=== PATIENT | male | born 1955 | race Two or more races ===

== ENCOUNTER 2017-07-29 18:49 | Inpatient (IN) | payer MEDICARE, MEDICAID ==
[~2017-07-29] VITALS: Ht 182.9 cm; Wt 89.9 kg
[2017-07-29] MEDS ORDERED: BUSP10TA3 PO (19:11)
[2017-07-29] MEDS ORDERED: METO25TA6 PO (19:11)
[2017-07-29] MEDS ORDERED: SIMV40TA5 PO (19:11)
[2017-07-29] MEDS ORDERED: HYDR-4061 PO (19:11)
[2017-07-29] MEDS ORDERED: OMEP20CA10 PO (19:11)
[2017-07-29] MEDS ORDERED: ATOR-2 PO (19:11)
[2017-07-29] MEDS ORDERED: CHOL50004 PO (19:11)
[2017-07-29] MEDS ORDERED: CALC600T12 PO (19:11)
[2017-07-29] MEDS ORDERED: TEMA15CA PO (19:12)
[2017-07-29] MEDS ORDERED: AMOX500T2 PO (19:12)
[2017-07-29] MEDS ORDERED: SODIUM CHLORIDE 0.9% 1,000 ML IV ONE (19:15)
[2017-07-29 19:32] LABS: BASOPHILS % (AUTO) 0.4 % (0.0-2.0); EOSINOPHILS % (AUTO) 1.4 % (1.0-6.0); HEMATOCRIT 39.2 % (41-53); HEMOGLOBIN 13.4 g/dL (13.5-17.5); LYMPHOCYTES # (AUTO) 3.1 K/uL (1.0-4.8); LYMPHOCYTES % (AUTO) 41.8 % (22.0-44.0); MEAN CORPUSCULAR HEMOGLOBIN 29.2 pg (26.0-34.0); MEAN CORPUSCULAR HGB CONC 34.2 G/dL (31.0-37.0); MEAN CORPUSCULAR VOLUME 85 fL (80-100); MONOCYTES # (AUTO) 0.5 K/uL (0.1-1.0); MONOCYTES % (AUTO) 6.2 % (2.0-9.0); NEUTROPHILS # (AUTO) 3.7 K/uL (1.8-7.7); NEUTROPHILS % (AUTO) 50.2 % (40.0-70.0); PLATELET COUNT (AUTO) 161 K/uL (150-450); RED BLOOD CELL COUNT(AUTO) 4.58 MIL/uL (4.50-5.90); RED CELL DISTRIBUTION WIDTH 14.5 % (11.5-14.5)
[2017-07-29 19:55] LABS: ANION GAP 11 mmol/L (8-16); CALCIUM, TOTAL 8.8 mg/dL (8.8-10.5); CARBON DIOXIDE 25 mmol/L (22-29); CHLORIDE 108 mmol/L (98-107); CREATININE 0.91 mg/dL (0.60-1.30); GLOMERULAR FILTR. RATE CALC > 60 mL/min (>60); GLUCOSE,RANDOM 93 mg/dL (70-110); POTASSIUM 3.7 mmol/L (3.5-5.1); SODIUM SERUM 144 mmol/L (136-145); UREA NITROGEN, BLOOD 12 mg/dL (7-18)
[2017-07-29 20:00] LABS: ALANINE AMINOTRANSFERASE 29 U/L (12-78); ALBUMIN 3.5 g/dL (3.4-5.0); ALKALINE PHOSPHATASE 68 U/L (46-116); ASPARTATE AMINOTRANSFERASE 26 U/L (15-37); BILIRUBIN,TOTAL 0.3 mg/dL (0.1-1.0); TOTAL PROTEIN, SERUM 6.8 g/dL (6.4-8.2)
[2017-07-29 21:21] LABS: SALICYLATE < 2.8 mg/dL (2.8-20.0)
[2017-07-29 21:39] LABS: ACETAMINOPHEN < 2 mcg/mL (10-30)
[2017-07-29] MEDS ORDERED: ZOLPIDEM TARTRATE 10 MG TABLET PO PRN (22:15)
[2017-07-29] MEDS ORDERED: LORazepam 1 MG TABLET PO PRN (22:15)
[2017-07-30 00:50] LABS: CHOLESTEROL 164 mg/dL (131-200); FREE T4 (FREE THYROXINE) 1.33 ng/dL (0.76-1.46); HDL CHOLESTEROL 54 mg/dL (40-60); LDL CHOL (CALC.) 83 mg/dL (0-130); THYROID STIMULATING HORMONE 1.62 uIU/mL (0.36-3.74); TRIGLYCERIDES 133 mg/dL (15-150)
[2017-07-30 03:23] VITALS: BP 148/74
[2017-07-30] MEDS ORDERED: PNEUMOCOCCAL VACCINE POLYVALENT 0.5 ML VIAL [PPSV23] IM ONE (04:30)
[2017-07-30] MEDS ORDERED: INFLUENZA VIRUS VACCINE QVS 2017-18 (3YR+)/PF 60 MCG/0.5 ML SYRINGE IM ONE (04:30)
[2017-07-30 08:00] VITALS: BP 119/71
[2017-07-30] MEDS ORDERED: QUEtiapine FUMARATE 100 MG TABLET PO PRN (11:30)
[2017-07-30] MEDS ORDERED: HydrOXYzine PAMOATE 50 MG CAPSULE PO PRN (11:30)
[2017-07-30] MEDS ORDERED: MAGNESIUM HYDROXIDE SUSPENSION 30 ML UDCUP PO PRN (11:30)
[2017-07-30] MEDS ORDERED: GuaiFENesin/D-METHORPHAN [SUGAR-FREE] 200-20MG/10 ML SYRUP UDCUP PO PRN (11:30)
[2017-07-30] MEDS ORDERED: PROMETHAZINE HCL 25 MG TABLET PO PRN (11:30)
[2017-07-30] MEDS ORDERED: MAG HYDROX/AL HYDROX/SIMETH ES 30 ML SUSPENSION UDCUP PO PRN (11:30)
[2017-07-30] MEDS ORDERED: TUBERCULIN, PURIFIED PROTEIN DERIVATIVE 5 TU/0.1 ML SYG ID ONE (11:30)
[2017-07-30] MEDS ORDERED: ACETAMINOPHEN 325 MG TABLET PO PRN (11:30)
[2017-07-30] MEDS ORDERED: LOPERAMIDE HCL 2 MG CAPSULE PO PRN (11:30)
[2017-07-30] MEDS ORDERED: DULO20CA30 PO (15:45)
[2017-07-30] MEDS: THIAMINE HCL 100 MG TABLET PO SCH (16:21)
[2017-07-30 16:56] VITALS: BP 134/87
[2017-07-31 05:53] VITALS: BP 138/77
[2017-07-31] MEDS: THIAMINE HCL 100 MG TABLET PO SCH (08:47)
[2017-07-31] MEDS ORDERED: DULO20CA30 PO (08:58)
[2017-07-31] MEDS ORDERED: DULoxetine HCL 20 MG CAPSULE PO SCH (09:00)
[2017-07-31] MEDS ORDERED: OMEPRAZOLE 20 MG CAPSULE PO SCH (09:00)
[2017-07-31] MEDS ORDERED: FOLIC ACID 1 MG TABLET PO SCH (09:00)
[2017-07-31] MEDS ORDERED: CHOLECALCIFEROL (VIT D3) 2,000 UNITS TABLET PO SCH (09:00)
[2017-07-31] MEDS ORDERED: MULTIVITAMINS WITH MINERALS, THERAPEUTIC TABLET PO SCH (09:00)
[2017-07-31 09:55] VITALS: BP 131/69
== END 2017-07-31 15:30 | disposition home or self-care (01) | DRG 885 ==
LOC: EMS 18:51 → 3EX 07-30 02:34
PROVIDERS: ADMIT Psychiatry & Neurology Psychiatry; ATTEND Psychiatry & Neurology Psychiatry
PROC: 3E0234Z Introduction of Serum, Toxoid and Vaccine into Muscle, Percutaneous Approach (ICD-10-PCS; principal; 2017-07-30)
DX: F33.9 Major depressive disorder, recurrent, unspecified (principal); Z91.14 Patient's other noncompliance with medication regimen; D64.9 Anemia, unspecified; T50.901A Poisoning by unspecified drugs, medicaments and biological substances, accidental (unintentional), initial encounter; E55.9 Vitamin D deficiency, unspecified; E78.5 Hyperlipidemia, unspecified; I10 Essential (primary) hypertension; K21.9 Gastro-esophageal reflux disease without esophagitis; F17.210 Nicotine dependence, cigarettes, uncomplicated; F41.9 Anxiety disorder, unspecified; G89.29 Other chronic pain; Y92.89 Other specified places as the place of occurrence of the external cause; Z82.49 Family history of ischemic heart disease and other diseases of the circulatory system; I25.2 Old myocardial infarction; Z85.46 Personal history of malignant neoplasm of prostate; Z23 Encounter for immunization
CPT/HCPCS: 84439; 84443; 93005; G0480; G0481; J7030

== ENCOUNTER 2017-08-26 11:58 | Inpatient (IN) | payer MEDICARE, MEDICAID ==
[~2017-08-26] VITALS: Ht 182.9 cm; Wt 89.4 kg
[~2017-08-26 11:58] MED LIST: DULO20CA30 PO; OMEP20CA10 PO
[2017-08-26] MEDS ORDERED: ZOLP10TA7 PO (12:28)
[2017-08-26] MEDS ORDERED: STATIN PO (12:28)
[2017-08-26] MEDS ORDERED: ASPI-556 PO (12:28)
[2017-08-26] MEDS ORDERED: CHEMO (12:31)
[2017-08-26 12:54] LABS: BASOPHILS % (AUTO) 0.6 % (0.0-2.0); EOSINOPHILS % (AUTO) 1.3 % (1.0-6.0); HEMATOCRIT 41.6 % (41-53); HEMOGLOBIN 14.2 g/dL (13.5-17.5); LYMPHOCYTES # (AUTO) 1.7 K/uL (1.0-4.8); LYMPHOCYTES % (AUTO) 17.8 % (22.0-44.0); MEAN CORPUSCULAR HEMOGLOBIN 29.4 pg (26.0-34.0); MEAN CORPUSCULAR HGB CONC 34.1 G/dL (31.0-37.0); MEAN CORPUSCULAR VOLUME 86 fL (80-100); MONOCYTES # (AUTO) 0.5 K/uL (0.1-1.0); MONOCYTES % (AUTO) 5.1 % (2.0-9.0); NEUTROPHILS % (AUTO) 75.2 % (40.0-70.0); PLATELET COUNT (AUTO) 156 K/uL (150-450); RED BLOOD CELL COUNT(AUTO) 4.83 MIL/uL (4.50-5.90); RED CELL DISTRIBUTION WIDTH 14.6 % (11.5-14.5)
[2017-08-26] MEDS ORDERED: HYDROCODONE/ACETAMINOPHEN 5-325 MG TABLET PO ONE (13:00)
[2017-08-26] MEDS ORDERED: PERTUSS(ACELL),DIPH,TET VAC/PF 0.5 ML VIAL IM ONE (13:00)
[2017-08-26 13:05] LABS: ANION GAP 7 mmol/L (8-16); CALCIUM, TOTAL 8.9 mg/dL (8.8-10.5); CARBON DIOXIDE 27 mmol/L (22-29); CHLORIDE 105 mmol/L (98-107); CREATININE 0.82 mg/dL (0.60-1.30); GLOMERULAR FILTR. RATE CALC > 60 mL/min (>60); GLUCOSE,RANDOM 100 mg/dL (70-110); SODIUM SERUM 139 mmol/L (136-145); UREA NITROGEN, BLOOD 13 mg/dL (7-18)
[2017-08-26 13:11] LABS: ALANINE AMINOTRANSFERASE 21 U/L (12-78); ALBUMIN 3.6 g/dL (3.4-5.0); ALKALINE PHOSPHATASE 82 U/L (46-116); ASPARTATE AMINOTRANSFERASE 15 U/L (15-37); BILIRUBIN,TOTAL 0.4 mg/dL (0.1-1.0); TOTAL PROTEIN, SERUM 6.8 g/dL (6.4-8.2)
[2017-08-26] MEDS ORDERED: ZOLPIDEM TARTRATE 10 MG TABLET PO PRN (13:15)
[2017-08-26] MEDS ORDERED: QUEtiapine FUMARATE 100 MG TABLET PO PRN (13:15)
[2017-08-26] MEDS ORDERED: LORazepam 2 MG TABLET PO PRN (13:15)
[2017-08-26] MEDS ORDERED: SIMV-261 PO (13:18)
[2017-08-26] MEDS ORDERED: HYDROCODONE/ACETAMINOPHEN 10-325 MG TABLET PO ONE (15:15)
[2017-08-26] MEDS ORDERED: GuaiFENesin/D-METHORPHAN [SUGAR-FREE] 200-20MG/10 ML SYRUP UDCUP PO PRN (15:30)
[2017-08-26] MEDS ORDERED: ACETAMINOPHEN 325 MG TABLET PO PRN (15:30)
[2017-08-26] MEDS ORDERED: LOPERAMIDE HCL 2 MG CAPSULE PO PRN (15:30)
[2017-08-26] MEDS ORDERED: MAGNESIUM HYDROXIDE SUSPENSION 30 ML UDCUP PO PRN (15:30)
[2017-08-26] MEDS ORDERED: HydrOXYzine PAMOATE 50 MG CAPSULE PO PRN (15:30)
[2017-08-26] MEDS ORDERED: MAG HYDROX/AL HYDROX/SIMETH ES 30 ML SUSPENSION UDCUP PO PRN (15:30)
[2017-08-26] MEDS ORDERED: PROMETHAZINE HCL 25 MG TABLET PO PRN (15:30)
[2017-08-26] MEDS: THIAMINE HCL 100 MG TABLET PO SCH (16:51)
[2017-08-26 20:13] LABS: APPEARANCE,URINE CLEAR (CLEAR); BILIRUBIN,URINE NEGATIVE (NEGATIVE); GLUCOSE, URINE (UA) NEGATIVE (NEGATIVE); KETONES,URINE TRACE mg/dL (NEGATIVE); LEUKOCYTE ESTERASE ,URINE NEGATIVE (NEGATIVE); NITRATE,URINE NEGATIVE (NEGATIVE); OCCULT BLOOD,URINE NEGATIVE (NEGATIVE); PROTEIN,URINE NEGATIVE (NEGATIVE)
[2017-08-26 20:16] LABS: AMPHET/METH SCREEN,URINE NEGATIVE (NEGATIVE); BARBITURATE SCREEN, URINE NEGATIVE (NEGATIVE); BENZODIAZEPINES SCREEN,URINE NEGATIVE (NEGATIVE); CANNABINOID SCREEN,URINE NEGATIVE (NEGATIVE); COCAINE SCREEN,URINE NEGATIVE (NEGATIVE); METHADONE SCREEN, URINE NEGATIVE (NEGATIVE); OPIATE SCREEN,URINE POSITIVE (NEGATIVE)
[2017-08-26 20:17] LABS: PHENCYCLIDINE SCREEN,URINE NEGATIVE (NEGATIVE)
[2017-08-26] MEDS ORDERED: INFLUENZA VIRUS VACCINE QVS 2017-18 (3YR+)/PF 60 MCG/0.5 ML SYRINGE IM ONE (21:15)
[2017-08-26] MEDS: ZOLPIDEM TARTRATE 10 MG TABLET PO PRN (21:20)
[2017-08-26 21:26] VITALS: BP 147/80
[2017-08-27 06:39] LABS: BASOPHILS % (AUTO) 0.4 % (0.0-2.0); EOSINOPHILS % (AUTO) 2.8 % (1.0-6.0); HEMOGLOBIN 14.4 g/dL (13.5-17.5); LYMPHOCYTES # (AUTO) 1.9 K/uL (1.0-4.8); LYMPHOCYTES % (AUTO) 27.7 % (22.0-44.0); MEAN CORPUSCULAR HEMOGLOBIN 29.5 pg (26.0-34.0); MEAN CORPUSCULAR HGB CONC 34.2 G/dL (31.0-37.0); MEAN CORPUSCULAR VOLUME 87 fL (80-100); MONOCYTES # (AUTO) 0.5 K/uL (0.1-1.0); MONOCYTES % (AUTO) 6.9 % (2.0-9.0); NEUTROPHILS # (AUTO) 4.3 K/uL (1.8-7.7); NEUTROPHILS % (AUTO) 62.2 % (40.0-70.0); PLATELET COUNT (AUTO) 151 K/uL (150-450); RED BLOOD CELL COUNT(AUTO) 4.86 MIL/uL (4.50-5.90); RED CELL DISTRIBUTION WIDTH 14.8 % (11.5-14.5)
[2017-08-27 07:02] LABS: ALANINE AMINOTRANSFERASE 21 U/L (12-78); ALBUMIN 3.3 g/dL (3.4-5.0); ALKALINE PHOSPHATASE 75 U/L (46-116); ANION GAP 10 mmol/L (8-16); ASPARTATE AMINOTRANSFERASE 14 U/L (15-37); BILIRUBIN,TOTAL 0.4 mg/dL (0.1-1.0); CALCIUM, TOTAL 8.8 mg/dL (8.8-10.5); CARBON DIOXIDE 26 mmol/L (22-29); CHLORIDE 105 mmol/L (98-107); CHOL/HDL RATIO 4.4 (4.2-7.3); CHOLESTEROL 201 mg/dL (131-200); CREATININE 0.77 mg/dL (0.60-1.30); GLOMERULAR FILTR. RATE CALC > 60 mL/min (>60); GLUCOSE,RANDOM 101 mg/dL (70-110); HDL CHOLESTEROL 46 mg/dL (40-60); LDL CHOL (CALC.) 131 mg/dL (0-130); POTASSIUM 4.1 mmol/L (3.5-5.1); SODIUM SERUM 141 mmol/L (136-145); TOTAL PROTEIN, SERUM 6.4 g/dL (6.4-8.2); TRIGLYCERIDES 118 mg/dL (15-150); UREA NITROGEN, BLOOD 11 mg/dL (7-18)
[2017-08-27 08:05] VITALS: BP 122/78
[2017-08-27] MEDS: DULoxetine HCL 20 MG CAPSULE PO SCH (08:56)
[2017-08-27] MEDS: THIAMINE HCL 100 MG TABLET PO SCH ×2 (08:56→16:25)
[2017-08-27] MEDS: OMEPRAZOLE 20 MG CAPSULE PO SCH (08:56)
[2017-08-27] MEDS: MULTIVITAMINS WITH MINERALS, THERAPEUTIC TABLET PO SCH (08:56)
[2017-08-27] MEDS: ASPIRIN 81 MG CHEWABLE TABLET PO SCH (08:56)
[2017-08-27] MEDS: FOLIC ACID 1 MG TABLET PO SCH (08:56)
[2017-08-27] MEDS: NICOTINE 21 MG/24 HOUR PATCH TD SCH (09:00)
[2017-08-27 16:35] VITALS: BP 123/74
[2017-08-28] MEDS: NICOTINE 21 MG/24 HOUR PATCH TD SCH (09:00)
[2017-08-28] MEDS: ASPIRIN 81 MG CHEWABLE TABLET PO SCH (09:17)
[2017-08-28] MEDS: OMEPRAZOLE 20 MG CAPSULE PO SCH (09:18)
[2017-08-28] MEDS: FOLIC ACID 1 MG TABLET PO SCH (09:18)
[2017-08-28] MEDS: THIAMINE HCL 100 MG TABLET PO SCH ×2 (09:18→16:21)
[2017-08-28] MEDS: DULoxetine HCL 20 MG CAPSULE PO SCH (09:18)
[2017-08-28] MEDS: MULTIVITAMINS WITH MINERALS, THERAPEUTIC TABLET PO SCH (09:18)
[2017-08-28 10:43] VITALS: BP 134/84
[2017-08-28 16:46] VITALS: BP 126/79
[2017-08-29] MEDS ORDERED: DULoxetine HCL 20 MG CAPSULE PO SCH (09:00)
[2017-08-29] MEDS: OMEPRAZOLE 20 MG CAPSULE PO SCH (09:22)
[2017-08-29] MEDS: ASPIRIN 81 MG CHEWABLE TABLET PO SCH (09:22)
[2017-08-29] MEDS: MULTIVITAMINS WITH MINERALS, THERAPEUTIC TABLET PO SCH (09:22)
[2017-08-29] MEDS: FOLIC ACID 1 MG TABLET PO SCH (09:22)
[2017-08-29] MEDS: NICOTINE 21 MG/24 HOUR PATCH TD SCH (09:23)
[2017-08-29] MEDS: THIAMINE HCL 100 MG TABLET PO SCH ×2 (09:24→17:07)
[2017-08-29 09:50] VITALS: BP 141/76
[2017-08-29 17:00] VITALS: BP 124/72
[2017-08-29] MEDS: ZOLPIDEM TARTRATE 10 MG TABLET PO PRN (21:12)
[2017-08-30 06:48] VITALS: BP 135/74
[2017-08-30] MEDS ORDERED: DULoxetine HCL 60 MG CAPSULE PO SCH (09:00)
[2017-08-30] MEDS: NICOTINE 21 MG/24 HOUR PATCH TD SCH (09:00)
[2017-08-30] MEDS: FOLIC ACID 1 MG TABLET PO SCH (09:09)
[2017-08-30] MEDS: OMEPRAZOLE 20 MG CAPSULE PO SCH (09:09)
[2017-08-30] MEDS: MULTIVITAMINS WITH MINERALS, THERAPEUTIC TABLET PO SCH (09:10)
[2017-08-30] MEDS: ASPIRIN 81 MG CHEWABLE TABLET PO SCH (09:10)
[2017-08-30] MEDS: THIAMINE HCL 100 MG TABLET PO SCH ×2 (09:10→16:15)
[2017-08-30 09:40] VITALS: BP 131/68
[2017-08-30 18:21] VITALS: BP 125/70
[2017-08-31] MEDS ORDERED: DULO30CA2 PO (06:16)
[2017-08-31] MEDS: ASPIRIN 81 MG CHEWABLE TABLET PO SCH (08:06)
[2017-08-31] MEDS: MULTIVITAMINS WITH MINERALS, THERAPEUTIC TABLET PO SCH (08:07)
[2017-08-31] MEDS: THIAMINE HCL 100 MG TABLET PO SCH (08:07)
[2017-08-31] MEDS: OMEPRAZOLE 20 MG CAPSULE PO SCH (08:07)
[2017-08-31] MEDS: FOLIC ACID 1 MG TABLET PO SCH (08:07)
[2017-08-31 08:45] VITALS: BP 124/70
[2017-08-31] MEDS ORDERED: DULoxetine HCL 30 MG CAPSULE PO SCH (09:00)
== END 2017-08-31 09:15 | disposition home or self-care (01) | DRG 885 ==
LOC: EMS 11:59 → 3EX 14:40
PROVIDERS: ADMIT Psychiatry & Neurology Psychiatry; ATTEND Psychiatry & Neurology Psychiatry
PROC: 0HQEXZZ Repair Left Lower Arm Skin, External Approach (ICD-10-PCS; principal; 2017-08-26)
PROC: 0HQDXZZ Repair Right Lower Arm Skin, External Approach (ICD-10-PCS; 2017-08-26)
DX: F33.9 Major depressive disorder, recurrent, unspecified (principal); R45.851 Suicidal ideations; Z91.19 Patient's noncompliance with other medical treatment and regimen; D64.9 Anemia, unspecified; E55.9 Vitamin D deficiency, unspecified; S61.511A Laceration without foreign body of right wrist, initial encounter; E78.00 Pure hypercholesterolemia, unspecified; E78.5 Hyperlipidemia, unspecified; I10 Essential (primary) hypertension; K21.9 Gastro-esophageal reflux disease without esophagitis; N40.0 Benign prostatic hyperplasia without lower urinary tract symptoms; S61.512A Laceration without foreign body of left wrist, initial encounter; I25.2 Old myocardial infarction; Z85.46 Personal history of malignant neoplasm of prostate; Z87.891 Personal history of nicotine dependence; Z79.82 Long term (current) use of aspirin; Z79.899 Other long term (current) drug therapy; X78.8XXA Intentional self-harm by other sharp object, initial encounter; Y93.89 Activity, other specified; Y92.89 Other specified places as the place of occurrence of the external cause; Y99.8 Other external cause status; Z82.49 Family history of ischemic heart disease and other diseases of the circulatory system
CPT/HCPCS: 12004; 87081; 90471; 90715; 99285; G0480